=== PATIENT | female | born 1965 | race Caucasian/White ===

== ENCOUNTER 2024-12-08 05:44 | Day surgery (SDC) | payer BC ==
[2024-12-02 10:11] LABS: BASOPHILS # (AUTO) 0.08 K/uL (0.00-0.20); BASOPHILS % (AUTO) 0.9 % (0.0-5.0); EOSINOPHILS # (AUTO) 0.25 K/uL (0.00-0.70); EOSINOPHILS % (AUTO) 2.8 % (0.0-8.0); HEMATOCRIT 41.6 % (36-48); IMMATURE GRANULOCYTE ABSOLUTE 0.02 K/uL (0-1); LYMPHOCYTES # (AUTO) 2.6 K/uL (1.0-4.8); LYMPHOCYTES % (AUTO) 29.4 % (21.0-51.0); MEAN CORPUSCULAR HEMOGLOBIN 28.2 pg (27.0-33.0); MEAN CORPUSCULAR HGB CONC 31.3 g/dL (32.0-36.0); MEAN CORPUSCULAR VOLUME 90.2 fL (79-99); MONOCYTES # (AUTO) 0.8 K/uL (0.1-1.0); MONOCYTES % (AUTO) 9.3 % (3.0-13.0); NEUTROPHILS # (AUTO) 5.2 K/uL (1.8-7.7); NEUTROPHILS % (AUTO) 57.4 % (40.0-77.0); PLATELET COUNT (AUTO) 306 K/uL (130-400); RED BLOOD CELL COUNT(AUTO) 4.61 MIL/uL (4.00-5.50); RED CELL DISTRIBUTION WIDTH 14.8 % (11.0-15.5)
[2024-12-02 10:21] LABS: CREATININE 0.7 mg/dL (0.5-1.0); POTASSIUM 4.2 mmol/L (3.5-5.1)
[2024-12-02 10:39] VITALS: BP 105/75; PULSE 56; RESP 17; TEMP 98
[~2024-12-08] VITALS: Ht 152.4 cm; Wt 76.1 kg
[2024-12-08] VITALS (23 sets, daily range): BP systolic 94–125; BP diastolic 49–70; PULSE 59–69; RESP 4–19; TEMP 96.8–97.5
[~2024-12-08 05:44] MED LIST: ACETAMINOPHEN PO; ESTR1TAB17 PO; IBUPROFEN PO; LISI1TAB49 PO; rosuvastatin PO
[2024-12-08] MEDS: LACTATED RINGERS 1000ML 1,000 ML IV ONE (06:45)
[2024-12-08] MEDS: ceFAZolin SODIUM 2 GM VIAL ONE (06:45)
[2024-12-08] MEDS ORDERED: MIDAZOLAM HCL 1 MG/ML 2ML VIAL ONE (07:21)
[2024-12-08] MEDS ORDERED: FAMOTIDINE 20MG VIAL IV ONE (07:22)
[2024-12-08] MEDS ORDERED: acetaMINOPHEN 100 ML ONE (07:22)
[2024-12-08] MEDS ORDERED: LIDOCAINE PF 100MG/5ML (2%) SYRINGE 5ML ONE (07:28)
[2024-12-08] MEDS ORDERED: proPOFol 10 MG/ML 20ML VIAL IV ONE (07:28)
[2024-12-08] MEDS ORDERED: FENTanyl CITRate PF 50 MCG/1 ML 2ML VIAL ONE (07:29)
[2024-12-08] MEDS ORDERED: rocuRONium bROMide 10MG/1ML 5ML VL ONE (07:29)
[2024-12-08] MEDS: SCOPOLAMINE HYDROBROMIDE 1 EACH ADH..PATCH TD ONE (07:29)
[2024-12-08] MEDS ORDERED: ROPivacaine 0.5% 5MG/ML 30ML ONE (07:39)
[2024-12-08] MEDS ORDERED: dexaMETHasone SOD PHOSPHATE 4 MG/ML 1ML VIAL ONE ×2 (08:05→08:22)
[2024-12-08] MEDS ORDERED: ondanSETRON 4MG INJ ONE (08:22)
[2024-12-08] MEDS ORDERED: ePHEDrine SULFate 50 MG/ML AMPULE ONE (08:24)
[2024-12-08] MEDS: EPINEPHrine 1 MG/ML 30ML VIAL IJ ONE (09:00)
[2024-12-08] MEDS ORDERED: NEOSTIGMINE METHYLSULFATE 1MG/ML IV ONE (09:18)
[2024-12-08] MEDS ORDERED: GLYCOPYRROLATE 0.2 MG/ML 5 ML VIAL ONE (09:18)
[2024-12-08] MEDS ORDERED: HYDR-4060 PO (10:25)
[2024-12-08] MEDS ORDERED: MELO-108 PO (10:25)
--- NOTE | 2024-12-08 10:34 | OP ---
Operative Note: DATE OF PROCEDURE: 12/08/24 SURGEON: JOSE ALFREDO LUTZ MD SQL SSRS DEVELOPER: [Get Rollins CFA] ANESTHESIA: [General anesthesia] ANESTHESIOLOGIST/INSTRUCTOR PSYCHIATRIC AIDE: [Paty Epperson] PREOPERATIVE DIAGNOSIS: [Left shoulder impingement, supraspinatus rotator cuff tear, biceps tendinitis, possible SLAP lesion] POSTOPERATIVE DIAGNOSIS: [Left shoulder supraspinatus rotator cuff tear, left shoulder impingement.] IMPLANTS: [[employer] 6.5 mm anchor x1 and Arthrex suture anchor 4.75 x1] PROCEDURE: [Left shoulder arthroscopic rotator cuff tear repair, subacromial decompression, distal clavicle resection, bursectomy] ESTIMATED BLOOD LOSS: [Twenty mL] INDICATIONS: [Patient is a 59-year-old female with pain to the left shoulder the that has not responded to conservative treatment. The x-rays show the presence of a prominent acromion and distal clavicle with adequate space. The MRI shows the presence of a rotator cuff supraspinatus tear with mild retraction as well as possible SLAP lesion. The patient is brought to the operating room for arthroscopic procedure that she understood, risks, benefits and possible complications and agreed signed the consent form] DESCRIPTION OF PROCEDURE: [After adequate general anesthesia was achieved and regional block obtained the patient was placed in the beach chair position and the operative extremity was prepped and draped in the usual manner. After identification of the bony landmarks we proceeded to make a small incision in the posterior aspect of the shoulder subacromial area through the skin followed by blunt dissection with the arthroscopic trocar entering into the shoulder joint removing the trocar and applying the arthroscope into the sheath. After inflating the joint with fluid evaluation of the joint revealed normal subscapularis, biceps tendon, labrum, glenohumeral joint surfaces. The supraspinatus showed changes compatible with a tear and the infraspinatus was normal. The middle glenohumeral ligament had some degenerative changes that were debrided through a portal that was made anteriorly just lateral to the coracoid process and a cannula which was inserted into the joint. With the electrocautery we proceeded to debride this tissue as well as the loose tissue of the torn supraspinatus. We then proceeded to remove the arthroscope from the joint and after reapplying the trocar into the sheath we redirected it and inserted it into the subacromial space. Once again we switch the trocar for the arthroscope and evaluation of the subacromial space revealed significant amount of bursal tissue and a 3rd incision was made in the anterolateral aspect of the subacromial area through the skin and then with a blunt trocar we proceeded to enter this area followed by application of the electrocautery proceeding then to remove most of the bursal tissue opening the subacromial space noticing that there was obvious impingement due to the acromial hypertrophy and the prominent clavicle present. The anterior cannula was moved into the subacromial area at the level of the acromioclavicular joint. With the use of the shaver and through the lateral cannula we proceeded to continue cleaning the subacromial space and we finally expose the rotator cuff and identified the tear of the supraspinatus. Once we cleared the bursal tissue from the tear we proceeded then to use the shaver to clean the footprint of the supraspinatus insertion and then we inserted a large bore cannula through the lateral portal and then proceeded to repair the tear. Through the lateral portal we then apply a horizontal mattress stitch to the supraspinatus tendon with a tape suture placed in a horizontal mattress manner using the anterior cannula to remove the 1st arm of the suture and once the 2nd stitch was applied was passed back to the main cannula laterally. The 2 ends of the suture were then threaded into a 6.5 peek multi-fix anchor from [employer] and then we brought it through the cannula into the superolateral aspect of the tuberosity and Into the bone while holding tension and reducing the tear down to its insertion site until it reached the threaded portion and we then proceeded to screw the rest of the anchor into the bone. Once the anchor was buried we then proceeded to disengage the photographic aide and cut the ends of the suture completing the repair. Evaluation of the repair revealed that this has been adequate, but there was a open area anteriorly and then with the use of of an Arthrex 4.75 anchor with a #2 FiberWire Suture attached this was very anterior to the 1st anchor and a single suture was passed then through the supraspinatus tendon and then the suture was tied down completing the repair of the tear. At this point we proceeded then to start the decompression with the use of the bur starting with the subacromial area removing the tip of the acromium first and then proceeding posteriorly and once completed we then pay attention to the distal end of the clavicle removing the inferior two thirds, switching then the bur to the anterior portal removing the superior third through this side. Once the distal clavicle was resected we then proceeded to remove the debris from the subacromial area then the fluid and the arthroscope. The incisions were then closed with 2-0 Monocryl inverted stitches followed by application of Dermabond to seal the incisions and then they were covered with a small Telfa dressings and OpSite's. The drapes were then removed and the patient was placed in an arm sling. The bed was placed in the supine position and the patient was transferred to a stretcher and taken to recovery room for follow-up by anesthesia. There were no complications during the procedure.] JOSE ALFREDO LUTZ MD Dec 08, 2024 10:34
[2024-12-08] MEDS: morPHINE 2 MG SYG ONE (11:06)
--- NOTE | 2024-12-08 12:35 | NUR ---
Full and complete discharge instructions given to Patient and Family both verbally and in writing. Explained SURGICAL procedure precautions and follow up. Arm remains numb 2' to block but is Neurovascularly intact. Sling correctly in place. Patient tolerated fluids and voided x 1. All questions answered. PIV removed with catheter tip intact. Home with Family W/C to POV.
== END 2024-12-08 12:30 | disposition home or self-care (01) ==
LOC: DAH 05:44
PROVIDERS: ATTEND Orthopaedic Surgery
DX: M75.42 Impingement syndrome of left shoulder (principal); M75.102 Unspecified rotator cuff tear or rupture of left shoulder, not specified as traumatic; M75.22 Bicipital tendinitis, left shoulder; M25.512 Pain in left shoulder; M25.812 Other specified joint disorders, left shoulder; M19.90 Unspecified osteoarthritis, unspecified site; S43.432A Superior glenoid labrum lesion of left shoulder, initial encounter; I10 Essential (primary) hypertension; E78.5 Hyperlipidemia, unspecified; Z79.899 Other long term (current) drug therapy; Z82.49 Family history of ischemic heart disease and other diseases of the circulatory system; Z82.3 Family history of stroke; Z84.89 Family history of other specified conditions; Z98.890 Other specified postprocedural states; Z90.710 Acquired absence of both cervix and uterus; Z98.891 History of uterine scar from previous surgery; X50.9XXA Other and unspecified overexertion or strenuous movements or postures, initial encounter; Y93.89 Activity, other specified; Y92.89 Other specified places as the place of occurrence of the external cause; Y99.8 Other external cause status
CPT/HCPCS: 80048; 85025; 36415; 29827; 64415; 29824; 29826; J1100 ×2; A4663; J7030; J7120; J3490 ×4; J3010; J2270; J0171; J2003; J2250; J2704; J2405; J2710; J2795; J0690; A6204; A4930 ×2; C1713 ×2; A5120; A4215; A4223; A4213; A4222; A4221; A4600